=== PATIENT | male | born 1930 | race Caucasian/White ===

== ENCOUNTER 2019-05-20 17:06 | Emergency (ER) | payer MEDICARE ==
[2019-05-20 17:39] LABS: BASOPHILS % (AUTO) 1.1 % (0.0-5.0); EOSINOPHILS % (AUTO) 0.8 % (0.0-8.0); HEMATOCRIT 33.7 % (42-54); LYMPHOCYTES % (AUTO) 8.6 % (21.0-51.0); MEAN CORPUSCULAR HGB CONC 33.3 g/dL (32.0-36.0); MEAN CORPUSCULAR VOLUME 92.9 fL (79-99); MONOCYTES % (AUTO) 5.3 % (3.0-13.0); NEUTROPHILS % (AUTO) 84.2 % (40.0-77.0); PLATELET COUNT (AUTO) 131 K/uL (130-400); RED BLOOD CELL COUNT(AUTO) 3.63 MIL/uL (4.50-6.20); RED CELL DISTRIBUTION WIDTH 13.7 % (11.0-15.5); WHITE BLOOD COUNT (AUTO) 6.6 K/uL (4.8-10.8)
[2019-05-20 17:53] LABS: CREATININE 1.1 mg/dL (0.5-1.5); INR 1.09 (0.85-1.15); POTASSIUM 5.1 mmol/L (3.5-5.1); PROTHROMBIN TIME 11.4 SEC (9.6-11.6)
[2019-05-20 17:57] LABS: ALBUMIN 2.9 g/dL (3.5-5.0); BILIRUBIN,TOTAL 1.1 mg/dL (0.2-1.0); MAGNESIUM 1.9 mg/dL (1.80-2.40); TOTAL PROTEIN, SERUM 6.3 g/dL (6.0-8.3)
[2019-05-20 18:07] LABS: B-TYPE NATRIURETIC PEPTIDE 212 pg/mL (0-100)
[2019-05-20] MEDS ORDERED: NITROGLYCERIN 1GM/1 INCH PACKET TD ONE (19:04)
[2019-05-20] MEDS ORDERED: ASPIRIN 325 MG TABLET ONE (19:04)
[2019-05-20 21:02] LABS: APPEARANCE,URINE Clear (CLEAR); BILIRUBIN,URINE Negative (NEGATIVE); COLOR,URINE Dark Yellow (YELLOW); GLUCOSE, URINE (UA) Negative (NEGATIVE); KETONES,URINE Negative (NEGATIVE); LEUKOCYTE ESTERASE ,URINE Trace (NEGATIVE); NITRATE,URINE Negative (NEGATIVE); OCCULT BLOOD,URINE Negative (NEGATIVE); PH,URINE 8.5 (5.0-8.0); PROTEIN,URINE POS 1+ mg/dL (NEGATIVE)
[2019-05-20] MEDS ORDERED: FOSPHENYTOIN SODIUM 500 MG/10ML VIAL IJ ONE (21:09)
[2019-05-20] MEDS ORDERED: SODIUM CHLORIDE 0.9% 100 ML IV ONE (21:10)
[2019-05-20 21:38] LABS: SQUAMOUS EPITHELIAL CELL,UR Rare /HPF (0-2); WBC,URINE 0-1 /HPF (0-1)
[2019-05-20 21:39] LABS: BACTERIA,URINE Few /HPF (None Seen); MUCUS,URINE Few LPF (None Seen)
== END 2019-05-20 22:42 | disposition short-term general hospital (02) ==
LOC: EDH 17:06
DX: I61.9 Nontraumatic intracerebral hemorrhage, unspecified (principal); R07.9 Chest pain, unspecified; R42 Dizziness and giddiness
CPT/HCPCS: 36415; 70450; 71045; 80053; 81001; 82140; 82550; 83605; 83735; 83880; 84484; 85025; 85610; 85730; 87040 ×2; 93005; 96365; 99291; Q2009